=== PATIENT | female | born 1950 | race Caucasian/White ===

== ENCOUNTER → 2020-04-24 | Outpatient (CLI) | payer MEDICARE, OTHER | END | disposition home or self-care (01) | LOC: US 13:30 | DX: M79.89 Other specified soft tissue disorders (principal); I70.0 Atherosclerosis of aorta ==

== ENCOUNTER → 2020-04-26 | Outpatient (CLI) | payer MEDICARE, OTHER | END | disposition home or self-care (01) | LOC: LAB 12:19 | DX: E83.51 Hypocalcemia (principal) ==

== ENCOUNTER → 2020-10-10 | Outpatient (CLI) | payer MEDICARE, OTHER | END | disposition home or self-care (01) | LOC: COVID19 12:27 | PROVIDERS: ATTEND Nurse Practitioner Family | DX: J43.9 Emphysema, unspecified (principal); R09.81 Nasal congestion; R05 Cough; R06.2 Wheezing; Z20.828 Contact with and (suspected) exposure to other viral communicable diseases ==

== ENCOUNTER → 2021-01-24 | Outpatient (CLI) | payer MEDICARE, OTHER | END | disposition home or self-care (01) | LOC: MRI 12:37 | PROVIDERS: ATTEND Nurse Practitioner Family | DX: I67.82 Cerebral ischemia (principal); G93.89 Other specified disorders of brain; G31.89 Other specified degenerative diseases of nervous system ==

== ENCOUNTER 2022-01-23 13:12 | Emergency (ER) | payer MEDICARE, OTHER ==
[2022-01-23] MEDS ORDERED: VITAMIN D3125 MCG PO (13:36)
[2022-01-23] MEDS ORDERED: SIMVASTATIN40 MG PO (13:36)
[2022-01-23] MEDS ORDERED: Synthroid,Levo88 MCG PO (13:36)
== END 2022-01-23 15:59 | disposition home or self-care (01) ==
LOC: ED 13:12
DX: S01.01XA Laceration without foreign body of scalp, initial encounter (principal); Z79.899 Other long term (current) drug therapy; Z88.0 Allergy status to penicillin; Z88.2 Allergy status to sulfonamides; Z88.1 Allergy status to other antibiotic agents; W18.09XA Striking against other object with subsequent fall, initial encounter; Y93.01 Activity, walking, marching and hiking; Y92.89 Other specified places as the place of occurrence of the external cause; Y99.9 Unspecified external cause status

== ENCOUNTER 2022-10-09 11:14 | Emergency (ER) | payer MEDICARE, OTHER ==
[~2022-10-09] VITALS: Wt 54.5 kg
[~2022-10-09 11:14] MED LIST: SIMVASTATIN40 MG PO; Synthroid,Levo88 MCG PO; VITAMIN D3125 MCG PO
[2022-10-09] MEDS ORDERED: CYMBALTA20 M1 PO (11:23)
[2022-10-09] MEDS ORDERED: K2 PLUS D3 TAB1 EACH PO (11:24)
[2022-10-09] MEDS ORDERED: LIPITOR20 MG PO (11:25)
[2022-10-09] MEDS ORDERED: STIMULANT LAXA1 EACH PO (11:34)
[2022-10-09] MEDS ORDERED: MELOXICAM15 MG PO (11:34)
[2022-10-09] MEDS ORDERED: OYSTER SHELL 51 EAC5 PO (11:34)
[2022-10-09] MEDS ORDERED: MELATONIN + L-TH3 MG PO (11:35)
[2022-10-09] MEDS ORDERED: TRAMADOL HCL50 MG PO (11:35)
[2022-10-09] MEDS ORDERED: OXYBUTYNIN5 MG PO (11:37)
== END 2022-10-09 16:00 | disposition home or self-care (01) ==
LOC: ED 11:14
DX: S05.11XA Contusion of eyeball and orbital tissues, right eye, initial encounter (principal); Z88.0 Allergy status to penicillin; Z88.1 Allergy status to other antibiotic agents; Z91.018 Allergy to other foods; Z79.899 Other long term (current) drug therapy; W18.39XA Other fall on same level, initial encounter; Y93.89 Activity, other specified; Y92.89 Other specified places as the place of occurrence of the external cause; Y99.8 Other external cause status

== ENCOUNTER 2023-06-19 05:07 | Emergency (ER) | payer MEDICARE, OTHER ==
[~2023-06-19] VITALS: Ht 152.4 cm; Wt 68.0 kg
[~2023-06-19 05:07] MED LIST changes: +CYMBALTA20 M1 PO; +K2 PLUS D3 TAB1 EACH PO; +LIPITOR20 MG PO; +MELATONIN + L-TH3 MG PO; +MELOXICAM15 MG PO; +OXYBUTYNIN5 MG PO; +OYSTER SHELL 51 EAC5 PO; +STIMULANT LAXA1 EACH PO; +TRAMADOL HCL50 MG PO
[2023-06-19] MEDS ORDERED: PERCOCET 5-3251 EACH PO (08:47)
[2023-06-19] MEDS ORDERED: TRAMADOL HCL50 MG PO (08:52)
[2023-06-20] MEDS ORDERED: TYLENOL EXTRA500 MG PO (04:36)
[2023-06-20] MEDS ORDERED: LEVOTHYROXINE50 MC1 PO (04:37)
[2023-06-20] MEDS ORDERED: CYMBALTA20 M1 PO (04:38)
[2023-06-20] MEDS ORDERED: SKIN TREATMENT400 GM T (07:52)
[2023-06-20] MEDS ORDERED: ARTHRITIS PAIN150 GM T (07:54)
[2023-06-20] MEDS ORDERED: ASPERCREME LID1 EACH T (07:56)
[2023-06-24] MEDS ORDERED: POLYVINYL ALCOH15 ML OPH (12:02)
[2023-06-24] MEDS ORDERED: TRAMADOL HCL50 MG PO (12:02)
== END 2023-06-19 08:54 ==
LOC: ED 05:07
DX: S22.41XA Multiple fractures of ribs, right side, initial encounter for closed fracture (principal); S00.83XA Contusion of other part of head, initial encounter; M25.562 Pain in left knee; E78.00 Pure hypercholesterolemia, unspecified; E03.9 Hypothyroidism, unspecified; Z88.0 Allergy status to penicillin; Z88.2 Allergy status to sulfonamides; Z88.1 Allergy status to other antibiotic agents; Z91.018 Allergy to other foods; W19.XXXA Unspecified fall, initial encounter; Y93.89 Activity, other specified; Y92.129 Unspecified place in nursing home as the place of occurrence of the external cause; Y99.8 Other external cause status

== ENCOUNTER 2024-06-20 14:30 | Emergency (ER) | payer MEDICARE, OTHER ==
[~2024-06-20] VITALS: Ht 152.4 cm; Wt 47.6 kg
[~2024-06-20 14:30] MED LIST changes: +ARTHRITIS PAIN150 GM T; +ASPERCREME LID1 EACH T; +DOXYCYCLINE MO100 MG PO; +LEVOTHYROXINE50 MC1 PO; +NYAMYC15 GM T; +PERCOCET 5-3251 EACH PO; +POLYVINYL ALCOH15 ML OPH; +SKIN TREATMENT400 GM T; +TYLENOL EXTRA500 MG PO
[2024-06-20] MEDS ORDERED: ACETAMINOPHEN 325 MG TAB PO ONE (15:50)
[2024-06-20 17:08] LABS: BILIRUBIN Negative (Negative); BLOOD Negative (Negative); CLARITY Clear (Clear); COLOR Yellow (Yellow); GLUCOSE Negative (Negative); KETONE Negative (Negative); LEUKO ESTERASE Trace (Negative); NITRITE Negative (Negative); PH 6.5 (4.5-8.0); SPECIFIC GRAVITY 1.015 (1.001-1.030); UROBILINOGEN 0.2 E.U./dl (0.0-1.0)
[2024-06-20 17:18] LABS: BACTERIA 1+; MUCOUS 1+; RBC 0-2 rbc/hpf (0-2)
[2024-06-20] MEDS ORDERED: LEVOFLOXACIN750 M2 PO (18:09)
[2024-06-20] MEDS ORDERED: LEVOFLOXACIN 750 MG TAB PO ONE (18:10)
== END 2024-06-20 18:13 | disposition home or self-care (01) ==
LOC: ED 14:30
PROVIDERS: Nurse Practitioner Family
DX: S62.301A Unspecified fracture of second metacarpal bone, left hand, initial encounter for closed fracture (principal); S09.8XXA Other specified injuries of head, initial encounter; J18.9 Pneumonia, unspecified organism; E87.1 Hypo-osmolality and hyponatremia; J45.909 Unspecified asthma, uncomplicated; E78.5 Hyperlipidemia, unspecified; E78.00 Pure hypercholesterolemia, unspecified; E03.9 Hypothyroidism, unspecified; Z88.0 Allergy status to penicillin; Z88.2 Allergy status to sulfonamides; Z91.018 Allergy to other foods; Z88.1 Allergy status to other antibiotic agents; Z88.8 Allergy status to other drugs, medicaments and biological substances; Z90.49 Acquired absence of other specified parts of digestive tract; Z98.890 Other specified postprocedural states; Z79.899 Other long term (current) drug therapy; W19.XXXA Unspecified fall, initial encounter; Y93.89 Activity, other specified; Y92.89 Other specified places as the place of occurrence of the external cause; Y99.8 Other external cause status

== ENCOUNTER 2025-06-06 18:29 | Emergency (ER) | payer MEDICARE, OTHER ==
[~2025-06-06] VITALS: Ht 152.4 cm; Wt 47.6 kg
[~2025-06-06 18:29] MED LIST changes: +CEPHALEXIN500 M1 PO; +KLOR-CON M2020 ME1 PO; +LEVOFLOXACIN750 M2 PO; +OMEPRAZOLE MAGN20 MG PO
[2025-06-06 18:55] LABS: BASO # 0.1 10*3/uL (0.0-0.1); BASO % 0.9 % (0.0-1.0); EOS # 0.3 10*3/uL (0.0-0.4); EOS % 5.3 % (1.0-4.0); MEAN CELL VOLUME 82.5 fl (81.0-99.0); MEAN CORPUSCULAR HGB 25.8 pg (27.0-31.0); MEAN PLATELET VOLUME 8.4 fl (9.6-12.3); MONO # 0.6 10*3/uL (0.1-1.0); MONO % 9.7 % (3.0-9.0); NEUT # 3.4 10*3/uL (2.3-7.9); NEUT % 58.1 % (47.0-73.0); NUCLEATED RED BLOOD CELL 0.0 % (0.0-0.0); NUCLEATED RED BLOOD CELL 0.0 10*3/uL (0.0-0.0); PLATELET COUNT AUTOMATED 355 10*3/uL (130-400); RED CELL DISTRI WIDTH 15.9 % (0-14.5)
[2025-06-06 19:15] LABS: BUN 8 mg/dl (9-23)
== END 2025-06-06 20:33 | disposition home or self-care (01) ==
LOC: ED 18:29
PROVIDERS: Emergency Medicine
DX: J84.10 Pulmonary fibrosis, unspecified (principal); E78.00 Pure hypercholesterolemia, unspecified; E03.9 Hypothyroidism, unspecified; J45.909 Unspecified asthma, uncomplicated; E46 Unspecified protein-calorie malnutrition; Z90.49 Acquired absence of other specified parts of digestive tract; Z98.890 Other specified postprocedural states; Z88.1 Allergy status to other antibiotic agents; Z88.2 Allergy status to sulfonamides; Z88.5 Allergy status to narcotic agent; Z91.018 Allergy to other foods; Z88.8 Allergy status to other drugs, medicaments and biological substances